=== PATIENT | female | born 1995 | race Caucasian/White ===

== ENCOUNTER 2017-03-13 20:41 | Emergency (ER) | payer SELFPAY | END 2017-03-13 22:03 | disposition home or self-care (01) | LOC: ER1 20:41 | DX: S52.501A Unspecified fracture of the lower end of right radius, initial encounter for closed fracture (principal); V00.121A Fall from non-in-line roller-skates, initial encounter | CPT/HCPCS: 29125; 73090; 73110; 99283 ==